=== PATIENT | male | born 1975 | race Caucasian/White ===

== ENCOUNTER 2022-10-09 17:57 | Emergency (ER) | payer OTHER ==
[2022-10-09 18:49] VITALS: BP 129/95; PULSE 87; RESP 16; TEMP 98.2; BMI 27.2
[2022-10-09] MEDS ORDERED: KETOROLAC TROMETHAMINE 30 MG/1 ML VIAL IM ONE (19:14)
[2022-10-09] MEDS ORDERED: KETOROLAC TROMETHAMINE 30 MG/1 ML VIAL ONE (19:25)
== END 2022-10-09 19:44 | disposition home or self-care (01) ==
LOC: FER 17:57
PROC: 3E0233Z Introduction of Anti-inflammatory into Muscle, Percutaneous Approach (ICD-10-PCS; principal; 2022-10-09)
DX: M62.830 Muscle spasm of back (principal)
CPT/HCPCS: 99284-25